=== PATIENT | female | born 2000 | race Two or more races ===

== ENCOUNTER 2020-04-03 21:05 | Emergency (ER) | payer OTHER, BC ==
[~2020-04-03] VITALS: Ht 154.9 cm; Wt 97.8 kg
[2020-04-03 21:07] VITALS: BP 128/79
--- NOTE | 2020-04-03 21:30 | NUR ---
PT TO ROOM FROM TRIAGE. EKG DONE IN TRIAGE. PT C/O "HAVING ANXIETY TODAY BUT I STILL CAN'T BREATHE. I CAN USUALLY BREATHE BETTER BY NOW". PT C/O A LONG PERIOD OF ANXIETY TODAY WITH TINGLING AND NUMBNESS TO HANDS. PT IS CALM AND IN NO DISTRESS UPON ARRIVAL TO ER. ALL MONITORING EQUIPMENT APPLIED. VITALS STABLE. MOTHER AT BEDSIDE. AWAITING PROVIDER TO SEE PT. WILL CONTINUE TO MONITOR.
--- NOTE | 2020-04-03 22:01 | NUR ---
PT AMBULATORY TO RESTROOM, BACK TO BED WITHOUT DIFFICULTY
[2020-04-03] MEDS ORDERED: hydrOXyzine 50MG TABLET PO ONE (22:30)
[2020-04-03] MEDS ORDERED: hydrOXyzine 50MG TABLET ONE (22:31)
--- NOTE | 2020-04-03 22:34 | NUR ---
PT MEDICATED PER EMAR. 5 RIGHTS ADDRESSED. MOTHER STILL AT BEDSIDE. DENIES ANY NEEDS AT THIS TIME
--- NOTE | 2020-04-03 23:41 | NUR ---
Patient/Caregiver given discharge instructions and they have confirmed that they understand the instructions. Patient ambulatory with steady gait.
== END 2020-04-03 23:43 | disposition home or self-care (01) ==
LOC: ED 22:02
DX: R06.00 Dyspnea, unspecified (principal); F41.1 Generalized anxiety disorder; R00.0 Tachycardia, unspecified; J45.909 Unspecified asthma, uncomplicated
CPT/HCPCS: 71045; 93005; 99283